=== PATIENT | female | born 1955 | race Caucasian/White ===

== ENCOUNTER 2018-05-28 14:12 | Observation (INO) | payer MEDICAID ==
[2018-05-28 14:59] LABS: PLATELET COUNT 377 10^3/uL (150-400)
--- NOTE | 2018-05-28 15:02 | EDPHY ---
General Time Seen by Provider: 05/28/18 14:47 Narrative: CHIEF COMPLAINT: Chest pain, shortness of breath HISTORY OF PRESENT ILLNESS: Patient presents by private vehicle with complaints of chest pain. Chest pain has been present over the last 2 nights. It has been waking her from sleep. It is lower sternal and retrosternal, across the left side. It is mild-to- moderate at times. Also severe times. Currently /10. It wakes her from sleep. It is colicky induration. No predictable modifying factors. Sometimes worse with pressure. Also associated shortness of breath. No cough or fever at this time. She does report a recent upper respiratory infection. She reports occasional upper dental pain that she attributes to a sinus infection. She also notes some sore throat and right-sided ear pain. She has ongoing vertigo that is unchanged. She has no abdominal urinary complaints. She 1st presented to Urgent Care and they sent her to our facility for higher level care. No other associated complaints or modifying factors. REVIEW OF SYSTEMS: 10 systems were reviewed and negative with the exception of the elements mentioned in the history of present illness. PCP: Dr. Demarco SPECIALISTS: Cardiology, Dr. Li PAST MEDICAL HISTORY: Vertigo, anxiety, hypertension, neuropathy, degenerative disc disease, osteoarthritis PAST SURGICAL HISTORY: Right wrist, right hip SOCIAL HISTORY: Nonsmoker. Lives independently. Disabled. FAMILY HISTORY: Noncontributory EXAMINATION: Vitals: Triage VS reviewed General Appearance: Alert, no distress. well appearing. Head: normocephalic, atraumatic Eyes: Pupils equal and round, no conjunctival pallor or injection ENT, Mouth: Mucous membranes moist. Dental care in the right lower molar. Airway is widely patent without trismus. No pharyngeal erythema or edema. No exudate. Neck: Normal inspection, supple, non-tender. No meningismus. Respiratory: Lungs are clear to auscultation Cardiovascular: Tachycardic rate. Regular rhythm. No murmur. Gastrointestinal: Abdomen is soft and nontender Back: non-tender, no bony abnormalities Neurological: A&O, nonfocal, normal gait Skin: Warm and dry, no rash Extremities: Nontender, no pedal edema Psychiatric: Mood and affect normal DIFFERENTIAL DIAGNOSES: Including but not limited to PE, ACS, pneumonia, pericarditis, myocarditis, endocarditis, esophagitis, reflux, pharyngitis MDM: 2:50 p.m. Chest pain and shortness of breath over the past few evenings that has become constant. No exertional pain. No fever. She does have recent upper respiratory infection and has some ongoing right ear pain and sore throat. She does have mild tachycardia but no tachypnea hypoxemia. She is not meet SIRS criteria. She is well-appearing. EKG will be obtained. Laboratory studies and chest x-ray ordered. 3:20 p.m. D-dimer slightly elevated 0.52. Troponin is negative. Laboratory studies otherwise pending. Chest x-ray unremarkable. I discussed CT angiography of the chest rule out PE. The patient has agreed to this. I have ordered IV fluid due to the contrast. Aspirin is not been ordered as she reports severe allergy to ibuprofen and is concerned taken. 4:[address] Notified by radiologist. CT angiography of the chest is negative for any acute findings. Specifically negative for PE. 4:30 p.m. Patient re-evaluated. We discussed the negative CT angiography. We discussed shared decision pathway for her chest pain. She would like to wait and repeat her troponin. The 2 hr troponin will be drawn in 25 min. I have also ordered a GI cocktail. 5:00 p.m. Repeat troponin is also negative at 0.0. Patient re-evaluated. She still has chest pain but has not received her GI cocktail. 5:25 p.m. Patient re-evaluated. She has no improvement or chest pain. She has active chest pain with no improvement in this emergency department. I have discussed the case with Dr. Osorio, and she will admit the patient. She is admitted stable condition. Patient has consented to admission for EKG interpretation: Dr. Celeste SUPERVISION: Patient was evaluated and examined in conjunction with my secondary supervising physician as documented. We have both examined the patient. CONSULTATION: None - Diagnostics Imaging Results: Imaging Impressions Chest X-Ray 05/28/18 15:01 Impression: Negative chest.. Chest/Thorax CTA 05/28/18 15:27 Impression: Negative for acute pulmonary embolus. Mild thyromegaly. Findings and recommendations discussed with Adán Bangura at 1606 hour, 05/28. - History Smoking Status: Never smoked - Objective Vital Signs: Initial Vital Signs Temperature (C) 97.7 F 05/28/18 14:17 Heart Rate 103 H 05/28/18 14:17 Respiratory Rate 16 05/28/18 14:17 Blood Pressure 179/102 H 05/28/18 14:17 O2 Sat (%) 98 05/28/18 14:17 O2 Delivery Mode Room Air Allergies/Adverse Reactions: ibuprofen [Ibuprofen] Allergy (Severe, Verified 05/28/18 14:22) SWELLING erythromycin base [Erythromycin Base] Allergy (Intermediate, Verified 05/28/18 14:22) GI UPSET latex [Latex] Allergy (Intermediate, Verified 05/28/18 14:22) Rash amoxicillin [Amoxicillin] Allergy (Verified 05/28/18 14:22) CORN Allergy (Mild, Uncoded 05/10/10 11:01) Diarrhea ENVIRONMENTAL Allergy (Mild, Uncoded 05/10/10 11:02) Congestion NUTS Allergy (Mild, Uncoded 05/10/10 11:00) Congestion OREGANO Allergy (Mild, Uncoded 05/10/10 11:00) Diarrhea Home Medications: Medication Instructions Recorded Gabapentin 03/29/14 Triamterene-Hctz 50-25 mg Cap 05/28/18 Laboratory Results: Laboratory Results 05/28/18 14:50 05/28/18 14:50 05/28/18 05/28/18 05/28/18 Unknown 16:57 15:30 WBC RBC Hgb Hct MCV MCH MCHC RDW Plt Count MPV Neut % (Auto) Lymph % (Auto) Cloud % (Auto) Eos % (Auto) Baso % (Auto) Nucleat RBC Rel Count Absolute Neuts (auto) Absolute Lymphs (auto) Absolute Monos (auto) Absolute Eos (auto) Absolute Basos (auto) Absolute Nucleated RBC Immature Gran % Immature Gran # D-Dimer Sodium Potassium Chloride Carbon Dioxide Anion Gap BUN Creatinine Estimated GFR Glucose Calcium POC Troponin I 0.00 ng/mL ng/mL (0.00-0.08) Lipase Group A Strep Screen NEGATIVE (NEGATIVE) Group A Strep DNA Pending 05/28/18 05/28/18 05/28/18 14:55 14:50 14:50 WBC RBC Hgb Hct MCV MCH MCHC RDW Plt Count MPV Neut % (Auto) Lymph % (Auto) Cloud % (Auto) Eos % (Auto) Baso % (Auto) Nucleat RBC Rel Count Absolute Neuts (auto) Absolute Lymphs (auto) Absolute Monos (auto) Absolute Eos (auto) Absolute Basos (auto) Absolute Nucleated RBC Immature Gran % Immature Gran # D-Dimer 0.52 ug/mLFEU H ug/mLFEU (0.00-0.50) Sodium 138 mEq/L mEq/L (135-145) Potassium 3.7 mEq/L mEq/L (3.3-5.0) Chloride 103 mEq/L mEq/L (97-110) Carbon Dioxide 22 mEq/l mEq/l (22-31) Anion Gap 13 mEq/L mEq/L (6-14) BUN 20 mg/dL mg/dL (7-23) Creatinine 1.2 mg/dL H mg/dL (0.6-1.0) Estimated GFR 46 Glucose 105 mg/dL H mg/dL (70-100) Calcium 9.7 mg/dL mg/dL (8.5-10.4) POC Troponin I 0.00 ng/mL ng/mL (0.00-0.08) Lipase 237 IU/L IU/L (23-300) Group A Strep Screen Group A Strep DNA 05/28/18 14:50 WBC 7.85 10^3/uL 10^3/uL (3.80-9.50) RBC 5.19 10^6/uL 10^6/uL (4.18-5.33) Hgb 15.8 g/dL g/dL (12.6-16.3) Hct 46.5 % % (38.0-47.0) MCV 89.6 fL fL (81.5-99.8) MCH 30.4 pg pg (27.9-34.1) MCHC 34.0 g/dL g/dL (32.4-36.7) RDW 12.4 % % (11.5-15.2) Plt Count 377 10^3/uL 10^3/uL (150-400) MPV 9.0 fL fL (8.7-11.7) Neut % (Auto) 69.1 % % (39.3-74.2) Lymph % (Auto) 22.2 % % (15.0-45.0) Cloud % (Auto) 7.3 % % (4.5-13.0) Eos % (Auto) 0.4 % L % (0.6-7.6) Baso % (Auto) 0.9 % % (0.3-1.7) Nucleat RBC Rel Count 0.0 % % (0.0-0.2) Absolute Neuts (auto) 5.43 10^3/uL 10^3/uL (1.70-6.50) Absolute Lymphs (auto) 1.74 10^3/uL 10^3/uL (1.00-3.00) Absolute Monos (auto) 0.57 10^3/uL 10^3/uL (0.30-0.80) Absolute Eos (auto) 0.03 10^3/uL 10^3/uL (0.03-0.40) Absolute Basos (auto) 0.07 10^3/uL 10^3/uL (0.02-0.10) Absolute Nucleated RBC 0.00 10^3/uL 10^3/uL (0-0.01) Immature Gran % 0.1 % % (0.0-1.1) Immature Gran # 0.01 10^3/uL 10^3/uL (0.00-0.10) D-Dimer Sodium Potassium Chloride Carbon Dioxide Anion Gap BUN Creatinine Estimated GFR Glucose Calcium POC Troponin I Lipase Group A Strep Screen Group A Strep DNA Medications Given: Discontinued Medications Al Hydroxide/Mg Hydroxide (Maalox Susp) 30 ml PO ONCE ONE Stop: 05/28/18 17:07 Last Admin: 05/28/18 17:16 Dose: 30 ml Fentanyl (Sublimaze) 50 mcg IVP EDNOW ONE Stop: 05/28/18 15:39 Last Admin: 05/28/18 16:16 Dose: Not Given Hyoscyamine Sulfate (Levsin, Hyomax-Sl) 0.25 mg PO ONCE ONE Stop: 05/28/18 17:07 Last Admin: 05/28/18 17:15 Dose: 0.25 mg Sodium Chloride (Ns) 1,000 mls @ 0 mls/hr IV EDNOW ONE; Wide Open PRN Reason: Protocol Stop: 05/28/18 15:37 Last Admin: 05/28/18 16:15 Dose: 1,000 mls Lidocaine (Lidocaine 2% Viscous) 15 ml PO ONCE ONE Stop: 05/28/18 17:07 Last Admin: 05/28/18 17:16 Dose: 15 ml Point of Care Test Results: Chemistry 05/28/18 05/28/18 16:57 14:55 POC Troponin I 0.00 ng/mL ng/mL 0.00 ng/mL ng/mL (0.00-0.08) (0.00-0.08) Departure - Departure Disposition: [facility] Inpatient Acute Clinical Impression: Acute chest pain Condition: Good Referrals: Nga Paez MD [Primary Care Provider] - As per Instructions
[2018-05-28] MEDS ORDERED: NS 1,000 ML IV ONE (15:36)
[2018-05-28] MEDS ORDERED: fentaNYL 100 MCG/2 ML INJ IVP ONE (15:38)
[2018-05-28] MEDS ORDERED: IOPAMIDOL (ISOVUE 370) 100 ML BTL IV ONE (15:42)
[2018-05-28] MEDS ORDERED: LIDOCAINE 2% VISCOUS 15 ML UDCUP PO ONE (17:06)
[2018-05-28] MEDS ORDERED: HYOSCYAMINE SULFATE 0.125 MG TAB PO ONE (17:06)
[2018-05-28] MEDS ORDERED: MAG HYDROX/AL HYDROX/SIMETH 30 ML UDCUP PO ONE (17:06)
[2018-05-28] MEDS ORDERED: LORazepam 0.5 MG TAB PO ONE (18:18)
[2018-05-28] MEDS ORDERED: LORazepam 0.5 MG TAB PO PRN (18:18)
[2018-05-28] MEDS ORDERED: NITROGLYCERIN 0.4 MG BTL SL PRN (18:19)
[2018-05-28] MEDS ORDERED: ONDANSETRON 4 MG/2 ML VIAL IVP PRN (18:19)
[2018-05-28] MEDS ORDERED: ACETAMINOPHEN 325 MG TAB PO PRN (18:19)
[2018-05-28] MEDS ORDERED: ONDANSETRON DISINTEGRATING 4 MG TAB PO PRN (18:19)
--- NOTE | 2018-05-28 18:20 | PDGENHP ---
History and Physical - Chief Complaint chest pain - History of Present Illness 62 yo F with PMH of HTN and vertigo presenting with complaints of several days of chest pain. She notes it began 2 nights ago, waking her from sleep. She was unable to go back to sleep and the pain remained relatively unremitting. She thought it might be GERD or related to muscle cramps that she gets from time to time and took vitamin C and Magnesium to try to help these sxs, but it did not get better. She was able to carry on with her day as planned, went to bed, and was awakened the next night around midnight with the same pain. She took mag and vitamin C again without relief. She again was able to carry on with her day but when she was unable to get into see her PCP until tomorrow she thought she should come to ER for further evaluation. She notes that the pain is left sided and radiates to her rib cage. It is not worse with deep breath, is not positional, has no aggravating or alleviating factors. She notes she did have a cold recently but that has resolved. She states she is under a lot of stress and when this is discussed with her further she becomes very tearful and states that she has been very stressed and anxious since her father 3 years ago. Following his her relationship with her sister has been very strained and it impacts her relationship with her nephews. She states she is no longer able to see her therapist since changing PCPs. She notes she does not want all of her sxs chalked up to her stress but does note that her stress is severe and has been very hard for her to cope with. She has not had fever or chills, no changes in her weight, no difficulty with exercise. History Information - Allergies/Home Medication List Allergies/Adverse Reactions: ibuprofen [Ibuprofen] Allergy (Severe, Verified 05/28/18 14:22) SWELLING erythromycin base [Erythromycin Base] Allergy (Intermediate, Verified 05/28/18 14:22) GI UPSET latex [Latex] Allergy (Intermediate, Verified 05/28/18 14:22) Rash amoxicillin [Amoxicillin] Allergy (Verified 05/28/18 14:22) aspirin Allergy (Verified 05/28/18 18:56) CORN Allergy (Mild, Uncoded 05/10/10 11:01) Diarrhea ENVIRONMENTAL Allergy (Mild, Uncoded 11/15/10 11:02) Congestion NUTS Allergy (Mild, Uncoded 05/10/10 11:00) Congestion OREGANO Allergy (Mild, Uncoded 05/10/10 11:00) Diarrhea Home Medications: Herbals/Supplements -Info Only 1 ea PO DAILY 05/28/18 [Last Taken Unknown] Meclizine HCl [Meclizine HCl 25 mg (RX,OTC)] 25 mg PO BID PRN 05/28/18 [Last Taken 04/28/18] Triamterene/Hydrochlorothiazid [Triamterene-Hctz 37.5-25 mg Tb] 1 each PO DAILY 05/28/18 [Last Taken 05/28/18 09:00] I have personally reviewed and updated: family history, medical history, social history, surgical history - Past Medical History hypertension Additional medical history: vertigo - Surgical History Additional surgical history: wrist surgery. L4-S1 fusion. hip replacement. meniscus surgery. ACL surgery. 2 ankle surgeries - Family History Positive for: non-pertinent - Social History Smoking Status: Never smoked Alcohol Use: None Drug Use: None Additional social history: lives alone, no real family other than her sister who she is estranged from Review of Systems Review of Systems: ROS: 10pt was reviewed & negative except for what was stated in HPI & below Physical Exam Physical Exam: Temp Pulse Resp BP Pulse Ox 36.7 C 89 16 147/87 H 97 05/28/18 17:59 05/28/18 17:59 05/28/18 17:59 05/28/18 17:59 05/28/18 17:59 Constitutional: no apparent distress, appears nourished Eyes: PERRL, anicteric sclera Ears, Nose, Mouth, Throat: moist mucous membranes, hearing normal Cardiovascular: regular rate and rhythym, no murmur, rub, or gallop, No edema Respiratory: no respiratory distress, no rales or rhonchi Gastrointestinal: normoactive bowel sounds, soft, non-tender abdomen Genitourinary: no bladder fullness Skin: warm, normal color Musculoskeletal: full muscle strength, No asymmetric calves Neurologic: AAOx3 Psychiatric: interacting appropriately, not encephalopathic, anxious, depressed Lab Data & Imaging Review 05/28/18 14:50 05/28/18 14:50 WBC 7.85 10^3/uL (3.80-9.50) 05/28/18 14:50 RBC 5.19 10^6/uL (4.18-5.33) 05/28/18 14:50 Hgb 15.8 g/dL (12.6-16.3) 05/28/18 14:50 Hct 46.5 % (38.0-47.0) 05/28/18 14:50 MCV 89.6 fL (81.5-99.8) 05/28/18 14:50 MCH 30.4 pg (27.9-34.1) 05/28/18 14:50 MCHC 34.0 g/dL (32.4-36.7) 05/28/18 14:50 RDW 12.4 % (11.5-15.2) 05/28/18 14:50 Plt Count 377 10^3/uL (150-400) 05/28/18 14:50 MPV 9.0 fL (8.7-11.7) 05/28/18 14:50 Neut % (Auto) 69.1 % (39.3-74.2) 05/28/18 14:50 Lymph % (Auto) 22.2 % (15.0-45.0) 05/28/18 14:50 Sampson % (Auto) 7.3 % (4.5-13.0) 05/28/18 14:50 Eos % (Auto) 0.4 % (0.6-7.6) L 05/28/18 14:50 Baso % (Auto) 0.9 % (0.3-1.7) 05/28/18 14:50 Nucleat RBC Rel Count 0.0 % (0.0-0.2) 05/28/18 14:50 Absolute Neuts (auto) 5.43 10^3/uL (1.70-6.50) 05/28/18 14:50 Absolute Lymphs (auto) 1.74 10^3/uL (1.00-3.00) 05/28/18 14:50 Absolute Monos (auto) 0.57 10^3/uL (0.30-0.80) 05/28/18 14:50 Absolute Eos (auto) 0.03 10^3/uL (0.03-0.40) 05/28/18 14:50 Absolute Basos (auto) 0.07 10^3/uL (0.02-0.10) 05/28/18 14:50 Absolute Nucleated RBC 0.00 10^3/uL (0-0.01) 05/28/18 14:50 Immature Gran % 0.1 % (0.0-1.1) 05/28/18 14:50 Immature Gran # 0.01 10^3/uL (0.00-0.10) 05/28/18 14:50 D-Dimer 0.52 ug/mLFEU (0.00-0.50) H 05/28/18 14:50 Sodium 138 mEq/L (135-145) 05/28/18 14:50 Potassium 3.7 mEq/L (3.3-5.0) 05/28/18 14:50 Chloride 103 mEq/L (97-110) 05/28/18 14:50 Carbon Dioxide 22 mEq/l (22-31) 05/28/18 14:50 Anion Gap 13 mEq/L (6-14) 05/28/18 14:50 BUN 20 mg/dL (7-23) 05/28/18 14:50 Creatinine 1.2 mg/dL (0.6-1.0) H 05/28/18 14:50 Estimated GFR 46 05/28/18 14:50 Glucose 105 mg/dL (70-100) H 05/28/18 14:50 Calcium 9.7 mg/dL (8.5-10.4) 05/28/18 14:50 POC Troponin I 0.00 ng/mL (0.00-0.08) 05/28/18 16:57 Lipase 237 IU/L (23-300) 05/28/18 14:50 Group A Strep Screen NEGATIVE (NEGATIVE) 05/28/18 15:30 Visualized and Interpreted Chest x-ray results: Yes Chest X-Ray results: no infiltrate Visualized and Interpreted imaging results: Yes Interpretation: CTA chest: negative Visualized and Interpreted EKG results: Yes EKG Interpretation: Positive for: normal sinsus rhythm Assessment & Plan Assessment: Acute chest pain (Acute) 62 yo F with PMH of HTN presenting with 2 days of left sided chest pain # chest pain: atypical in patient with minimal risk factors for heart disease-- htn really only. Initial w/u non diagnostic--no dynamic ecg changes but does have e/o new q waves since last ecg in our system and non specific t wave changes compared to old. Will monitor overnight on tele, serial ecg, serial trops overnight. Patient is unable to exercise so will get nuc stress in am. # htn: bp elevated on arrival but improved and wnl currently, will continue home meds # anxiety: patient with a lot of stress around her family situation, discussed recommendation of getting f/u with a therapist after discharge which she is amenable to, will ask CM to meet with patient to help her with resources # observation status Patient new to my care. Old records reviewed and summarized as above. Care plan reviewed with ER doctor including plans for stress test in am.
[2018-05-28] MEDS ORDERED: ASPIRIN 325 MG TAB PO SCH (18:30)
--- NOTE | 2018-05-28 19:55 | CPEKG ---
Test Reason : OPEN Blood Pressure : / mmHG Vent. Rate : 083 BPM Atrial Rate : 082 BPM P-R Int : 138 ms QRS Dur : 084 ms QT Int : 401 ms P-R-T Axes : 055 -31 016 degrees QTc Int : 472 ms Sinus rhythm Probable left atrial enlargement Inferior infarct, old Consider anterior infarct Confirmed by Chela Celeste ([id number]) on 05/28/2018 7:54:58 PM Referred By: Confirmed By:Chela Celeste
--- NOTE | 2018-05-28 19:55 | CPEKG ---
Test Reason : OPEN Blood Pressure : / mmHG Vent. Rate : 099 BPM Atrial Rate : 100 BPM P-R Int : 136 ms QRS Dur : 081 ms QT Int : 363 ms P-R-T Axes : 045 -49 009 degrees QTc Int : 466 ms Pacemaker spikes or artifacts Sinus rhythm Inferior infarct, old Consider anterior infarct Confirmed by Chela Celeste ([id number]) on 05/28/2018 7:54:48 PM Referred By: Confirmed By:Chela Celeste
[2018-05-28] MEDS ORDERED: MECLIZINE HCL 25 MG TAB PO PRN (21:45)
[2018-05-29] MEDS ORDERED: TRIAMTERENE/HCTZ 37.5/25 1 EACH TAB PO SCH (09:00)
--- NOTE | 2018-05-29 10:18 | ASMTCMCOM ---
CM Note CM Note Notes: Spoke with pt in the room and with pt's RN. Pt was fighting back tears when offered resources for mental health and grief support. Pt provided with brochures for [facility] and [facility]. Pt gave permission for CM to contact [facility] on her behalf. Pt also provided with a list of bereavement support services and groups in [facility]. Pt states she has her care here and will be comfortable discharging independently. No further CM needs noted at this time. Date Signed: 05/29/2018 10:17 AM Electronically Signed By:Emily Mccullough
[2018-05-29] MEDS ORDERED: REGADENOSON 0.4 MG/5 ML SYR IVP ONE (10:28)
--- NOTE | 2018-05-29 11:20 | CPR ---
DATE OF PROCEDURE: 05/29/2018 PROCEDURE: Lexiscan nuclear stress test. INDICATION: The patient is a 62-year-old female who presented to the hospital with chest pain. She describes it as a sharp pain that occurred at nighttime. It resolved after taking calcium and magnes ium but returned the following night. Her events lasted approximately 10 minutes. She is unable to exercise, secondary to musculoskeletal pain. PROCEDURE IN DETAIL: Consent was obtained. The patient was placed on continuous telemetry. Her res ting EKG revealed normal sinus rhythm with nonspecific ST-T wave changes. The patient was infused wi th Lexiscan and complained of shortness of breath, chest discomfort, and mild diaphoresis. She devel oped sinus tachycardia, as well as diffuse T-wave flattening with the infusion. Her EKG returned to baseline 4 minutes into recovery. Her symptoms improved with caffeine, but she did have a persistent headache post infusion. Her blood pressure at rest was 115/78, remained stable throughout the proce dure. PLAN: Await nuclear images. /[id number]/MODL
[2018-05-29 12:52] VITALS: BP 111/71
--- NOTE | 2018-05-29 13:32 | PDDCSUM ---
Discharge Summary Discharge Summary: Date of Admission: 05/28/2018 Date of Discharge: 05/29/2018 Studies: 1. CTA chest - negative for PE, mild thyromegaly 2. Lexiscan stress with MPI - moderate fixed apical/septal perfusion defect which could represent infarct or apical thinning, no evidence of ischemia, no focal wall motion abnormality Discharge Diagnoses: 1. Non-cardiac chest pain 2. Hypertension 3. Anxiety 4. Mildly elevated creatinine Brief Hospital Course: 62 yo F with PMH of HTN presented with 2 days of left sided atypical chest pain. CTA of chest negative for PE. Serial cardiac biomarkers and ECGs were negative for acute ischemia. A nuclear stress w/MPI was also negative for ischemia however it did show a possible apical/septal infarct but this also may have been apical thinning. Her ECG did show some inferior Q waves and poor R wave progression but these were chronic. There were no regional wall motion abnormalities. She was given resources to find a therapist for her anxiety as this seems to be driving her symptoms. Medications: Please refer to EMR for complete list. No changes were made. Follow Up Plan: 1. Establish with behavioral health therapist 2. Recommend following up with PCP to monitor renal function, consider aspirin and statin therapy for primary prevention Physical Exam: Vitals and telemetry reviewed. Alert and oriented, RRR without m/ r/g, lungs clear, abdomen soft, no leg edema or JVD.
--- NOTE | 2018-05-29 13:40 | ASMTLACE ---
LACE Length of stay for Answers: Less than 1 day current admission Acuity / Level of Answers: No Care: Did the patient have an inpatient admission? Comorbidities - select Answers: Opioid dependence all that apply / Chronic pain Other Notes: HTN # of Emergency department Answers: 1-2 visits in the last 6 months Social determinants Answers: Mental health diagnosis (anxiety, depression, pers onality disorders, etc.) Score: 9 Date Signed: 05/29/2018 01:40 PM Electronically Signed By:Emily Mccullough
--- NOTE | 2018-05-29 13:44 | ASDISCHSUM ---
Discharge Information Plan Status:Home with No Needs Medically Cleared to Leave:05/28/2018 Discharge Date:05/28/2018 CM D/C Disposition:Home, Routine, Self-Care ADT D/C Disposition:Home, Routine, Self-Care Projected Discharge Date:05/28/2018 Transportation at D/C:Self Discharge Delay Reason: Follow-Up Date:05/28/2018 Discharge Slot: Final Diagnosis:chest pain Placement Information Patient Contact Information Contact Name:LOREN Relationship:Leti Address:[address] Work Phone: City:[place] Alternate Phone: [facility] Code:[place] [address] Email: Financial Information Financial Class:Medicaid Primary Plan Desc:MEDICA[employer] HEALTH [employer]VENUE OFFICER Primary Plan Number:[id number] Secondary Plan Desc: Secondary Plan Number: Assessment Information LACE LACE Length of stay for Answers: Less than 1 day current admission Acuity / Level of Answers: No Care: Did the patient have an inpatient admission? Comorbidities - select Answers: Opioid dependence all that apply / Chronic pain Other Notes: HTN # of Emergency department Answers: 1-2 visits in the last 6 months Social determinants Answers: Mental health diagnosis (anxiety, depression, pers onality disorders, etc.) Score: 9 Date Signed: 05/29/2018 01:40 PM Electronically Signed By:Emily Mccullough [facility] CM Progress Note CM Note CM Note Notes: Spoke with pt in the room and with pt's RN. Pt was fighting back tears when offered resources for mental health and grief support. Pt provided with brochures for [facility] and [facility]. Pt gave permission for CM to contact [facility] on her behalf. Pt also provided with a list of bereavement support services and groups in [facility]. Pt states she has her care here and will be comfortable discharging independently. No further CM needs noted at this time. Date Signed: 05/29/2018 10:17 AM Electronically Signed By:Emily Mccullough Case Management Discharge Plan Note Case Management Discharge Discharge Order Complete? Answers: Yes Patient to Obtain Answers: Independently Medications Transportation Arranged Answers: Other Notes: self Transport will Pick (Date 05/29/2018 12:00 AM & Time) Discharge Comments Notes: Pt has car here and feels comfortable driving herself. Has plans to see gio elizabeth in [employer] [place] this evening. No further CM needs noted. Date Signed: 05/29/2018 01:42 PM Electronically Signed By:Emily Mccullough Intervention Information
== END 2018-05-29 15:00 | disposition home or self-care (01) ==
LOC: F2W 18:26
PROVIDERS: ADMIT Internal Medicine; ATTEND Internal Medicine
DX: R07.9 Chest pain, unspecified (principal); I10 Essential (primary) hypertension; F41.9 Anxiety disorder, unspecified; E86.9 Volume depletion, unspecified; R79.89 Other specified abnormal findings of blood chemistry; R42 Dizziness and giddiness; G62.9 Polyneuropathy, unspecified; Z96.649 Presence of unspecified artificial hip joint; Z98.1 Arthrodesis status; Z88.0 Allergy status to penicillin
CPT/HCPCS: 71046; 71275; 78452; 93005; 93017; 96360; 99285; A9500; G0378; 84484-PO; J2785; J3010; Q9967

== ENCOUNTER → 2018-08-21 | Outpatient (CLI) | payer MEDICAID ==
[~2018-08-21] MED LIST: IOPAMIDOL (ISOVUE 370) 100 ML BTL IV ONE; METOPROLOL TARTRATE 5 MG/5 ML INJ ONE
== END ==
LOC: FIMAGING 11:44
PROVIDERS: ATTEND Internal Medicine Cardiovascular Disease
DX: I25.10 Atherosclerotic heart disease of native coronary artery without angina pectoris (principal); I10 Essential (primary) hypertension
CPT/HCPCS: Q9967